=== PATIENT | female | born 1960 | race Caucasian/White ===

== ENCOUNTER → 2020-05-20 | Outpatient (CLI) | payer OTHER | LOC: RAD 07:22 | DX: K80.20 Calculus of gallbladder without cholecystitis without obstruction (principal) ==

== ENCOUNTER → 2022-09-01 | Outpatient (CLI) | payer OTHER | LOC: RAD 07:23 | DX: R31.21 Asymptomatic microscopic hematuria (principal) ==

== ENCOUNTER → 2024-09-04 | Outpatient (CLI) | payer OTHER ==
[2024-09-04 16:06] LABS: BASO # 0.03 K/mm3 (0.02-0.10); EOS # 0.21 K/mm3 (0.04-0.40); EOS % 4.2 % (1.0-5.0); HEMATOCRIT 36.7 % (37.0-47.0); HEMOGLOBIN 12.2 g/dL (12.5-16.0); MEAN CELL VOLUME 88 fl (78-100); MEAN CORPUSCULAR HEMOGLOBIN 29 pg (27-31); MEAN CORPUSCULAR HGB CONC 33 g/dL (33-37); MEAN PLATELET VOLUME 9.8 fl (7.4-10.4); MONO # 0.46 K/mm3 (0.20-0.80); NEU # 2.96 K/mm3 (1.40-6.50); PLATELET COUNT 233 K/mm3 (130-400); RED BLOOD COUNT 4.18 M/mm3 (4.10-5.30); RED CELL DISTRIBUTION WIDTH 12.1 % (11.5-14.5)
[2024-09-04 16:08] LABS: ALBUMIN 4.3 g/dL (3.4-4.8)
[2024-09-04 16:09] LABS: CALCIUM 9.6 mg/dL (8.3-10.5)
[2024-09-04 16:11] LABS: TOTAL PROTEIN 6.7 g/dL (6.2-8.1)
[2024-09-04 23:54] LABS: FOLLICLE STIMULATING HORMONE 65.8 mIU/mL (())
[2024-09-06 06:37] LABS: SEX HORMONE BINDING GLOBULIN 75.7 nmol/L (())
== END ==
LOC: LAB 15:07
PROVIDERS: Nurse Practitioner Family
DX: N95.1 Menopausal and female climacteric states (principal)